=== PATIENT | female | born 1995 | race Caucasian/White ===

== ENCOUNTER 2016-08-26 13:44 | Emergency (ER) | payer BC ==
--- NOTE | 2016-08-26 15:55 | UC ---
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 No flu shot. For 3 days she has noted malaise, body aches, chills, ?fevers (no thermometer), dry cough. Today bad headache. Her parents want testing for flu and Tamiflu if she has it. No vomiting or diarrhea - History of Current Complaint Time Seen by Provider: 08/26/16 15:49 Hx Obtained From: Patient Onset/Duration: Started Days Ago - 3 Timing: Constant Initial Severity: Mild Current Severity: Mild Aggravating Factors: Nothing Alleviating Factors: Nothing Associated Signs and Symptoms: Chills, Cough - dry, Headache, Myalgia, Weakness - Risk Factors Pseudomonas Risk Factors: Negative Serious Bacterial Infection Risk Factors: Negative - Allergy/Home Medications Allergies/Adverse Reactions: Allergies Allergy/AdvReac Type Severity Reaction Status Date / Time No Known Allergies Allergy Verified 08/26/16 15:50 Home Medications: Home Medications Ibuprofen TAB* [Advil TAB*] 400 mg PO Q6H PRN 08/26/16 [History Confirmed ] PMH/Surg Hx/FS Hx/Imm Hx Previously Healthy: Yes - Family History Known Family History: Positive: Hypertension Review of Systems Constitutional: Fever, Chills, Fatigue Skin: Negative Eyes: Negative ENT: Sore Throat - "not really painful, but feels swollen", Nasal Discharge Respiratory: Cough - dry, occasional phlegm Cardiovascular: Negative Gastrointestinal: Other - poor appetite Genitourinary: Negative Motor: Negative Neurovascular: Negative Musculoskeletal: Myalgia Neurological: Headache Psychological: Negative All Other Systems Reviewed And Are Negative: Yes Physical Exam Triage Information Reviewed: Yes Appearance: Well-Appearing, No Pain Distress, Well-Nourished Vital Signs Reviewed: Yes Eye Exam: Normal ENT: Positive: Normal ENT inspection, Pharynx normal, Nasal congestion, TMs normal. Negative: Tonsillar swelling, Tonsillar exudate, Trismus, Muffled/ hoarse voice Neck exam: Normal Neck: Positive: Supple, Nontender Respiratory Exam: Normal Respiratory: Positive: Lungs clear, Normal breath sounds, No respiratory distress, No accessory muscle use Cardiovascular Exam: Normal Musculoskeletal Exam: Normal Neurological Exam: Normal Psychological Exam: Normal Skin Exam: Normal Diagnostics - Laboratory Diagnostic Studies Completed/Ordered: flu pos Course/Dx - Diagnoses Clinic Provider Diagnoses: influenza Discharge - Discharge Plan Condition: Stable Disposition: HOME Prescriptions: Oseltamivir SUSP* [Tamiflu SUSP*] 2 teasp PO BID #100 ml Patient Education Materials: Influenza (ED) Forms: *School Release Additional Instructions: Rest, fluids, Motrin or Tylenol for fever/achiness Get a flu shot next year! The flu can be a serious illness that causes you to miss a lot of class or work time, and there is no worthwhile treatment for it.
[2016-08-26 15:56] VITALS: BP 126/69
== END 2016-08-26 16:28 | disposition home or self-care (01) ==
LOC: UCCORT 13:44
DX: J11.1 Influenza due to unidentified influenza virus with other respiratory manifestations (principal)
CPT/HCPCS: 87502; 99202; G0463

== ENCOUNTER 2017-04-27 14:02 | Emergency (ER) | payer BC ==
--- NOTE | 2017-04-27 14:24 | UC ---
Throat Pain/Nasal Donn HPI - HPI Summary HPI Summary: nasal congestion and sore throat in the morning for about 2 weeks no fevers--- has not used any over the counter treatments - History of Current Complaint Chief Complaint: UCRespiratory Stated Complaint: SORE THROAT Time Seen by Provider: 04/27/17 14:04 Hx Obtained From: Patient Hx Last Menstrual Period: 04/08/17 ?: No Onset/Duration: Gradual Onset, Lasting Weeks - 2, Still Present Severity: Moderate Pain Intensity: 5 Pain Scale Used: 0-10 Numeric Cough: None Associated Signs & Symptoms: Positive: Sinus Discomfort, Nasal Discharge - Allergies/Home Medications Allergies/Adverse Reactions: Allergies Allergy/AdvReac Type Severity Reaction Status Date / Time No Known Allergies Allergy Verified 04/27/17 14:09 Home Medications: Home Medications Biotin 1 mg PO DAILY 04/27/17 [History Confirmed 04/27/17] Norgestimate-Ethinyl Estradiol [Sprintec 28 0.25-35 mg-Mcg] 1 tab PO DAILY 04/27 [History Confirmed 04/27/17] PMH/Surg Hx/FS Hx/Imm Hx Previously Healthy: Yes - Surgical History Surgical History: Yes Surgery Procedure, Year, and Place: wisdom teeth extraction - Family History Known Family History: Positive: Hypertension - Social History Occupation: Student Lives: With Family Alcohol Use: None Substance Use Type: None Smoking Status (MU): Never Smoked Tobacco - Immunization History Most Recent Influenza Vaccination: no Review of Systems Constitutional: Negative Skin: Negative Eyes: Negative ENT: Sore Throat, Nasal Discharge, Sinus Congestion Respiratory: Negative Cardiovascular: Negative Gastrointestinal: Negative Genitourinary: Negative Motor: Negative Neurovascular: Negative Musculoskeletal: Negative Neurological: Negative Psychological: Negative Is Patient Immunocompromised?: No All Other Systems Reviewed And Are Negative: Yes Physical Exam Triage Information Reviewed: Yes Appearance: Well-Appearing, No Pain Distress, Well-Nourished Vital Signs: Initial Vital Signs Temp 98.6 F 04/27/17 14:05 Pulse 63 04/27/17 14:05 Resp 16 04/27/17 14:05 Pulse Ox 99 04/27/17 14:05 Vital Signs Reviewed: Yes Eye Exam: Normal Eyes: Positive: Conjunctiva Clear ENT Exam: Normal ENT: Positive: Normal ENT inspection, Hearing grossly normal, Pharynx normal, Nasal congestion, Nasal drainage, TMs normal. Negative: Tonsillar swelling, Tonsillar exudate, Trismus, Muffled/hoarse voice Dental Exam: Normal Neck exam: Normal Neck: Positive: Supple, Nontender, No Lymphadenopathy Respiratory Exam: Normal Respiratory: Positive: Chest non-tender, Lungs clear, Normal breath sounds, No respiratory distress, No accessory muscle use Cardiovascular Exam: Normal Cardiovascular: Positive: RRR, No Murmur, Pulses Normal, Brisk Capillary Refill Musculoskeletal Exam: Normal Musculoskeletal: Positive: Strength Intact, ROM Intact, No Edema Neurological Exam: Normal Neurological: Positive: Alert, Muscle Tone Normal Psychological Exam: Normal Skin Exam: Normal Throat Pain/Nasal Course/Dx - Course Assessment/Plan: flonase, zyrtec D, increase fluids, follow with [facility] prn - Differential Dx/Diagnosis Differential Diagnosis/HQI/PQRI: Influenza, Peritonsillar Abscess, Pharyngitis, Sinusitis, URI Provider Diagnoses: Allergic Rhinnitis Discharge - Discharge Plan Condition: Stable Disposition: HOME Prescriptions: Cetirizine-Pseudoephedrine [Zyrtec-D Allergy/Congesti] 1 tab PO BID PRN #30 tab PRN Reason: nasal congestion/ Fluticasone NASAL SPRAY 50MCG* [Flonase NASAL SPRAY 50MCG*] 2 spray BOTH NARES DAILY #1 btl Patient Education Materials: Allergic Rhinitis (ED), How to Use Nasal [place] (ED ) Referrals: [facility] [Outside] - If Needed
[2017-04-27 14:25] VITALS: BP 122/68
== END 2017-04-27 14:34 | disposition home or self-care (01) ==
LOC: UCCORT 14:02
DX: J30.9 Allergic rhinitis, unspecified (principal)
CPT/HCPCS: 87651; 99212; G0463

== ENCOUNTER 2017-08-28 15:09 | Emergency (ER) | payer BC ==
[2017-08-28 15:53] VITALS: BP 125/82
--- NOTE | 2017-08-28 16:19 | ED ---
GI/ HPI - HPI Summary HPI Summary: 21 yr old female with the complaint of dysuria, frequency, hesitancy or urination for a couple of days and now some pain in the right flank. Flank pain 5/10 and worse with walking and moving. She is currently on her menses day three. No NVD. No fever. She states she feels like she has a uti. - History of Current Complaint Chief Complaint: UCGU Time Seen by Provider: 08/28/17 16:04 Stated Complaint: LOW BACK PAIN Hx Last Menstrual Period: 08/16/17 Pain Intensity: 7 - Allergy/Home Medications Allergies/Adverse Reactions: Allergies Allergy/AdvReac Type Severity Reaction Status Date / Time No Known Allergies Allergy Verified 08/28/17 15:50 PMH/Surg Hx/FS Hx/Imm Hx - Surgical History Surgery Procedure, Year, and Place: wisdom teeth extraction Infectious Disease History: No Infectious Disease History: Denies: Traveled Outside the [place] in Last 30 Days - Family History Known Family History: Positive: Hypertension - Social History Occupation: Student Lives: Dormitory/Roommates Alcohol Use: Occasionally Substance Use Type: Reports: None Smoking Status (MU): Never Smoked Tobacco Review of Systems Negative: Fever, Chills Positive: dysuria, frequency, flank pain, urgency All Other Systems Reviewed And Are Negative: Yes Physical Exam Triage Information Reviewed: Yes Vital Signs On Initial Exam: Initial Vitals Temp Pulse Resp BP Pulse Ox 98.4 F 83 16 125/82 97 08/28/17 15:48 08/28/17 15:48 08/28/17 15:48 08/28/17 15:48 08/28/17 15:48 Vital Signs Reviewed: Yes Appearance: Positive: Well-Appearing, No Pain Distress Skin: Positive: Warm, Skin Color Reflects Adequate Perfusion Head/Face: Positive: Normal Head/Face Inspection Eyes: Positive: EOMI ENT: Positive: Pharynx normal, TMs normal Neck: Positive: Nontender Respiratory/Lung Sounds: Positive: Clear to Auscultation, Breath Sounds Present Cardiovascular: Positive: RRR. Negative: Murmur Abdomen Description: Positive: CVA Tenderness (R) Musculoskeletal: Positive: Strength/ROM Intact Neurological: Positive: Sensory/Motor Intact, Alert, Oriented to Person Place, Time, CN Intact II-III Psychiatric: Positive: Normal - Rick Coma Scale Best Eye Response: 4 - Spontaneous Best Motor Response: 6 - Obeys Commands Best Verbal Response: 5 - Oriented Coma Scale Total: 15 Diagnostics - Vital Signs Vital Signs Temp Pulse Resp BP Pulse Ox 08/28/17 15:48 98.4 F 83 16 125/82 97 - Laboratory Lab Statement: Any lab studies that have been ordered have been reviewed, and results considered in the medical decision making process. GIGU Course/Dx - Course Course Of Treatment: 21 yr old with pyelonephritis on exam and by history. Will Rx with antibiotics. - Diagnoses Provider Diagnoses: Pyelonephritis Discharge - Discharge Plan Condition: Good Disposition: HOME Prescriptions: Ciprofloxacin TAB* [Cipro 500 MG TAB*] 500 mg PO BID #14 tab Patient Education Materials: Kidney Infection (ED) Referrals: Non Staff,Doctor [Primary Care Provider] - [facility] [Outside] Additional Instructions: if you develop fever, vomiting, worsening pain or feel ill you should go to the Emergency Room immediately.
== END 2017-08-28 16:43 | disposition home or self-care (01) ==
LOC: UCCORT 15:09
DX: N10 Acute pyelonephritis (principal); B96.20 Unspecified Escherichia coli [E. coli] as the cause of diseases classified elsewhere; Z32.02 Encounter for pregnancy test, result negative
CPT/HCPCS: 81003; 84702; 87077; 87086; 87186; 99212; G0463

== ENCOUNTER 2017-11-03 18:39 | Emergency (ER) | payer BC ==
[2017-11-03 18:53] VITALS: BP 119/77
[2017-11-03] MEDS ORDERED: Nitrofurantoin Macrocrystals* 50 MG CAP PO ONE (19:40)
--- NOTE | 2017-11-03 19:43 | UC ---
UC General HPI - HPI Summary HPI Summary: PT IS C/O FREQUENT - BURNING URINATION FOR A DAY OR TWO. NO FLANK PAIN, FEVER AND NO RISK/CONCERN FOR STD. SHE NOTES A SECOND COMPLAINT OF A "GAS BUBBLE" TYPE PAIN IN HER EPIGASTRIC AREA ABOUT 1 MONTH AGO FOR 4 DAYS. IT REOCCURED YESTERDAY BUT THEN RESOLVED. NO CHANGES WITH MEALS. GINGERALE DID HELP. - History of Current Complaint Chief Complaint: UCGU Stated Complaint: POSSIBLE UTI Time Seen by Provider: 11/03/17 18:55 Hx Obtained From: Patient Hx Last Menstrual Period: 10/21/17 Pain Intensity: 5 Associated Signs & Symptoms: Positive: Abdominal Pain, Dysuria. Negative: Chest Pain, Diarrhea, Fever, Nausea, Vomiting - Allergy/Home Medications Allergies/Adverse Reactions: Allergies Allergy/AdvReac Type Severity Reaction Status Date / Time No Known Allergies Allergy Verified 11/03/17 18:49 PMH/Surg Hx/FS Hx/Imm Hx - Additional Past Medical History Additional PMH: UTI, pyelonephritis - Surgical History Surgical History: Yes Surgery Procedure, Year, and Place: wisdom teeth extraction - Family History Known Family History: Positive: Hypertension - Social History Occupation: Student Lives: Dormitory/Roommates Alcohol Use: Occasionally Substance Use Type: None Smoking Status (MU): Never Smoked Tobacco - Immunization History Most Recent Influenza Vaccination: no Vaccination Up to Date: Yes Review of Systems Constitutional: Negative Skin: Negative Eyes: Negative ENT: Negative Respiratory: Negative Cardiovascular: Negative Gastrointestinal: Abdominal Pain Genitourinary: Dysuria, Frequency, Urgency Motor: Negative Neurovascular: Negative Musculoskeletal: Negative Neurological: Negative Psychological: Negative Is Patient Immunocompromised?: No All Other Systems Reviewed And Are Negative: Yes Physical Exam Triage Information Reviewed: Yes Appearance: Well-Appearing Vital Signs: Initial Vital Signs Temp 98.5 F 11/03/17 18:49 Pulse 83 11/03/17 18:49 Resp 18 11/03/17 18:49 BP 119/77 11/03/17 18:49 Pulse Ox 100 11/03/17 18:49 Vital Signs Reviewed: Yes Eyes: Positive: Conjunctiva Clear ENT: Positive: Normal ENT inspection Neck: Positive: Supple, Nontender, No Lymphadenopathy Respiratory: Positive: Lungs clear, Normal breath sounds Cardiovascular: Positive: RRR, No Murmur Abdomen Description: Positive: Nontender, No Organomegaly, Soft. Negative: CVA Tenderness (R), CVA Tenderness (L), Distended, Guarding Bowel Sounds: Positive: Present Musculoskeletal: Positive: ROM Intact Neurological: Positive: Alert Psychological: Positive: Age Appropriate Behavior Skin Exam: Normal Diagnostics - Laboratory Diagnostic Studies Completed/Ordered: U/A=+ protein, blood, bilirum, leuks. culture is pending. hcg=neg Course/Dx - Course Course Of Treatment: hx and PE support uti. no acute abdomen, hcg is neg. no abdominal pain now. will suggest Pepcid trial, recheck [facility], f/u pcp at home and go to ER for any worsening. - Differential Dx - Multi-Symptom Provider Diagnoses: UTI. Episodic epigastric pain Discharge - Sign-Out/Discharge Documenting (check all that apply): Discharge - Discharge Plan Condition: Stable Disposition: HOME Prescriptions: Nitrofurantoin Macrocrystals* [Macrodantin*] 100 mg PO BID #10 cap Patient Education Materials: Urinary Tract Infection in Women (ED), Epigastric Pain (ED) Referrals: No Primary Care Phys,NOPCP [Primary Care Provider] - Additional Instructions: TAKE OVER THE COUNTER PEPCID PER LABEL FOR 1 WEEK. FOLLOW UP [facility] IN 5-7 DAYS FOR A RECHECK OR SOONER IF WORSE. FOLLOW UP WITH YOUR PRIMARY CARE DOCTOR WHEN YOU GO HOME IN A FEW WEEKS FOR A RECHECK OF THE EPISODIC EPIGASTRIC PAINS - Billing Disposition and Condition Condition: STABLE Disposition: HOME
== END 2017-11-03 19:49 | disposition home or self-care (01) ==
LOC: UCCORT 18:39
DX: N39.0 Urinary tract infection, site not specified (principal); R10.13 Epigastric pain; Z32.02 Encounter for pregnancy test, result negative
CPT/HCPCS: 81003; 84702; 87086; 99212; A9270-GY; G0463

== ENCOUNTER 2018-05-29 21:10 | Emergency (ER) | payer BC ==
[2018-05-29 21:24] VITALS: BP 115/63
[2018-05-29] MEDS ORDERED: Ibuprofen TAB* 600 MG PO ONE (21:49)
--- NOTE | 2018-05-29 21:53 | UC ---
UC General HPI - HPI Summary HPI Summary: pt presents with a 12 hour hx of back ache, neck pain, mild sore throat. 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 she states that lots of people have been sick around her. pt denies any n/v/fever or chills. - History of Current Complaint Chief Complaint: UCGeneralIllness Stated Complaint: BACK/NECK/HEAD PAIN Hx Obtained From: Patient Hx Last Menstrual Period: 05/14/18 Onset Severity: Mild Current Severity: Mild Pain Intensity: 6 - Allergy/Home Medications Allergies/Adverse Reactions: Allergies Allergy/AdvReac Type Severity Reaction Status Date / Time No Known Allergies Allergy Verified 05/29/18 21:24 Home Medications: Home Medications NK [No Home Medications Reported] 05/29/18 [History Confirmed 05/29/18] PMH/Surg Hx/FS Hx/Imm Hx Previously Healthy: Yes - Surgical History Surgical History: Yes Surgery Procedure, Year, and Place: wisdom teeth extraction - Family History Known Family History: Positive: Hypertension - Social History Alcohol Use: Occasionally Substance Use Type: None Smoking Status (MU): Never Smoked Tobacco - Immunization History Most Recent Influenza Vaccination: no Vaccination Up to Date: Yes Review of Systems Constitutional: Negative Skin: Negative Eyes: Negative ENT: Sore Throat Respiratory: Negative Cardiovascular: Negative Gastrointestinal: Negative Genitourinary: Negative Motor: Negative Neurovascular: Negative Musculoskeletal: Arthralgia - back and neck pain Neurological: Headache Is Patient Immunocompromised?: No All Other Systems Reviewed And Are Negative: No Physical Exam Triage Information Reviewed: Yes Completion Of Physical Exam Limited Due To: Altered Mental Status Appearance: Well-Appearing, No Pain Distress, Well-Nourished Vital Signs: Initial Vital Signs Temp 98.0 F 05/29/18 21:18 Pulse 80 05/29/18 21:18 Resp 18 05/29/18 21:18 BP 115/63 05/29/18 21:18 Pulse Ox 98 05/29/18 21:18 Vital Signs Reviewed: Yes Eye Exam: Normal Eyes: Positive: Conjunctiva Clear ENT Exam: Normal ENT: Positive: Hearing grossly normal, Pharyngeal erythema - minimal Dental Exam: Normal Neck exam: Normal Neck: Positive: Supple, Nontender Respiratory Exam: Normal Respiratory: Positive: Chest non-tender, Lungs clear, Normal breath sounds Cardiovascular: Positive: RRR, No Murmur Abdominal Exam: Normal Abdomen Description: Positive: Nontender, Soft Bowel Sounds: Positive: Present Musculoskeletal Exam: Normal Musculoskeletal: Positive: Strength Intact, ROM Intact, No Edema Neurological: Positive: Alert Psychological Exam: Normal Psychological: Positive: Normal Response To Family, Age Appropriate Behavior Skin Exam: Normal Course/Dx - Course Course Of Treatment: pt has a viral syndrome, upper uri. she was given motrin in the ed. - Differential Dx - Multi-Symptom Provider Diagnoses: viral syndrome Discharge - Sign-Out/Discharge Documenting (check all that apply): Patient Departure All imaging exams completed and their final reports reviewed: No Studies - Discharge Plan Condition: Stable Disposition: HOME Patient Education Materials: Viral Syndrome (ED) Forms: *Work Release Referrals: No Primary Care Phys,NOPCP [Primary Care Provider] - Additional Instructions: followup with your primary care physician. take tylenol and motrin for pain. drink plenty of fluids. - Billing Disposition and Condition Condition: STABLE Disposition: Home
== END 2018-05-29 21:59 | disposition home or self-care (01) ==
LOC: UCCORT 21:10
DX: J02.9 Acute pharyngitis, unspecified (principal); M54.5 Low back pain; B34.9 Viral infection, unspecified
CPT/HCPCS: 99212; A9270-GY; G0463